=== PATIENT | female | born 1975 | race Caucasian/White ===

== ENCOUNTER → 2020-01-28 15:41 | Outpatient (BNVA) | payer OTHER, SELFPAY | PROVIDERS: Family Provider Nurse Practitioner Family; PCP Nurse Practitioner Family; Visit Provider Nurse Practitioner Family | DX: E03.9 Hypothyroidism, unspecified (principal); Z68.33 Body mass index [BMI] 33.0-33.9, adult; E55.9 Vitamin D deficiency, unspecified; E03.8 Other specified hypothyroidism; E53.9 Vitamin B deficiency, unspecified; E61.2 Magnesium deficiency; E06.3 Autoimmune thyroiditis; Z12.4 Encounter for screening for malignant neoplasm of cervix; E61.1 Iron deficiency | CPT/HCPCS: 80053; 80061; 82306; 82607; 82728; 83550; 83735; 84439; 84443; 88175 ==

== ENCOUNTER → 2020-03-01 15:23 | Outpatient (BNVA) | payer OTHER, SELFPAY | PROVIDERS: Family Provider Nurse Practitioner Family; PCP Nurse Practitioner Family; Visit Provider Nurse Practitioner Family | DX: S33.5XXA Sprain of ligaments of lumbar spine, initial encounter (principal) | CPT/HCPCS: 80053; 81000 ==